=== PATIENT | female | born 2000 | race Caucasian/White ===

== ENCOUNTER 2020-04-26 07:59 | Inpatient (IN) ==
[2020-04-26] MEDS ORDERED: Lidocaine 1% 20 ML MDV INFILT PRN (08:06)
[2020-04-26] MEDS ORDERED: Metoclopramide 10 MG/2 ML VIAL IVP PRN (08:06)
[2020-04-26] MEDS ORDERED: Famotidine 20 MG/2 ML VIAL IVP PRN (08:06)
[2020-04-26] MEDS ORDERED: Ondansetron 4 MG/2 ML VIAL IVP PRN (08:06)
[2020-04-26] MEDS ORDERED: Naloxone 0.4 MG/ML INJ IVP PRN (08:06)
[2020-04-26] MEDS ORDERED: Azithromycin 500 MG in 0.9 % Sodium Chloride 250 ML IVPB ONE (08:06)
[2020-04-26] MEDS ORDERED: *HR* FentaNYL (PF) 100 MCG/2 ML VIAL IVP PRN (08:06)
[2020-04-26] MEDS ORDERED: miSOPROStoL 25 MCG TABLET VG SCH (08:08)
[2020-04-26 08:51] LABS: Basophils % 0.6 %; Eosinophils % 0.6 %; Hematocrit 40.9 % (35.3-44.9); Hemoglobin 13.6 g/dL (11.5-15.4); Immature Granulocytes % 0.6 % (0-4); Lymphocytes # 2.1 K/mcL (0.6-4.6); Lymphocytes % 31.5 %; Mean Corpuscular HGB Conc 33.3 g/dL (31.6-35.5); Mean Corpuscular Hemoglobin 32.2 pg (28.0-33.3); Mean Corpuscular Volume 96.9 fL (83.0-100.0); Monocytes # 0.5 K/mcL (0.0-1.3); Monocytes % 7.6 %; Platelet Count 151 K/mcL (140-400); Red Blood Count 4.22 M/mcL (3.82-4.97); Red Cell Distribution Width 13.7 % (11.5-14.5); Segmented Neutrophils % 59.1 %; White Blood Count 6.8 K/mcL (4.3-11.1)
[2020-04-26] MEDS ORDERED: Oxytocin 20 units/ LR 1000 mL 20 UNIT/1,000 ML BAG IVC SCH ×2 (09:15→22:53)
[2020-04-26] MEDS: Ringers Solution, Lactated 1,000 ML IVC SCH ×2 (09:26→15:22)
[2020-04-26 09:33] LABS: Amphetamine Screen,Urine Negative ng/mL (Cutoff=1000); Barbiturate Screen,Urine Negative ng/mL (Cutoff=200); Benzodiazepines Screen,Urine Negative ng/mL (Cutoff=200); Cannabinoid Screen,Urine Negative ng/mL (Cutoff = 50); Cocaine Screen,Urine Negative ng/mL (Cutoff= 300); Opiate Screen,Urine Negative ng/mL (Cutoff=300); Phencyclidine Screen,Urine Negative ng/mL (Cutoff=25)
[2020-04-26 10:03] LABS: Platelet Estimate Normal (Normal); Reactive Lymphocytes Present (Not Present)
[2020-04-26] MEDS ORDERED: EPHEDrine 50 MG/ML VIAL IVP PRN (14:58)
[2020-04-26] MEDS ORDERED: Ropivacaine/PF 0.2% 20 ML VIAL EP ONE (14:58)
[2020-04-26] MEDS ORDERED: *HR* FentaNYL (PF) 100 MCG/2 ML VIAL EP ONE (14:58)
[2020-04-26] MEDS ORDERED: Epidural Premix (fent/bupiv) 110 ML EP SCH (15:00)
[2020-04-26] MEDS ORDERED: Epidural Premix (fent/bupiv) 110 ML EP ONE (15:11)
[2020-04-26] MEDS ORDERED: Lidocaine 1% 20 ML MDV ONE (19:45)
[2020-04-26] MEDS ORDERED: *HR* OxyCODONE/APAP 5/325 TABLET PO PRN (22:53)
[2020-04-26] MEDS ORDERED: *HR* OxyCODONE/APAP 10/325 TABLET PO PRN (22:53)
[2020-04-26] MEDS ORDERED: Acetaminophen 325 MG TABLET PO PRN (22:53)
[2020-04-26] MEDS ORDERED: Benzocaine/Menthol 56 GM AEROSOL SPRAY TP PRN (22:53)
[2020-04-26] MEDS ORDERED: Lanolin 7 G OINT...G. TP PRN (22:53)
[2020-04-26] MEDS: Ibuprofen 600 MG TABLET PO PRN (23:13)
[2020-04-27 08:04] LABS: Basophils % 0.2 %; Eosinophils % 0.1 %; Immature Granulocytes % 0.4 % (0-4); Lymphocytes # 1.7 K/mcL (0.6-4.6); Lymphocytes % 15.4 %; Mean Corpuscular HGB Conc 34.2 g/dL (31.6-35.5); Mean Corpuscular Hemoglobin 33.4 pg (28.0-33.3); Mean Corpuscular Volume 97.8 fL (83.0-100.0); Mean Platelet Volume 10.3 fL (9.4-12.4); Monocytes # 1.1 K/mcL (0.0-1.3); Monocytes % 9.4 %; Platelet Count 136 K/mcL (140-400); Red Blood Count 3.17 M/mcL (3.82-4.97); Red Cell Distribution Width 13.7 % (11.5-14.5); Segmented Neutrophils % 74.5 %
[2020-04-27 08:05] LABS: Hemoglobin 10.6 g/dL (11.5-15.4); Neutrophils # 8.4 K/mcL (1.6-8.9); White Blood Count 11.3 K/mcL (4.3-11.1)
[2020-04-27] MEDS: Prenatal Vit/FA 1 EACH TABLET PO SCH (08:31)
[2020-04-27] MEDS: Ibuprofen 600 MG TABLET PO PRN (08:31)
[2020-04-28 08:14] VITALS: BP 93/58
[2020-04-28] MEDS: Prenatal Vit/FA 1 EACH TABLET PO SCH (08:59)
[2020-04-28] MEDS: Ibuprofen 600 MG TABLET PO PRN (09:00)
== END 2020-04-28 13:13 | disposition home or self-care (01) | DRG 768 ==
LOC: 1NENULAB 07:59 → 1NENUOBS 22:42
PROVIDERS: ADMIT Obstetrics & Gynecology; ATTEND Obstetrics & Gynecology